=== PATIENT | male | born 1995 | race Caucasian/White ===

== ENCOUNTER 2022-10-02 09:20 | Outpatient (CLI) | payer OTHER, SELFPAY | END 2022-10-02 09:21 | disposition home or self-care (01) | LOC: ANHGOSHLAB 09:25 | PROVIDERS: PCP Emergency Medicine; Visit Provider Emergency Medicine | DX: E03.9 Hypothyroidism, unspecified (principal) | CPT/HCPCS: 36415; 84439; 84443 ==

== ENCOUNTER 2024-02-15 08:08 | Outpatient (CLI) | payer OTHER, SELFPAY ==
[2024-02-15 14:45] LABS: LDL Cholesterol Direct 103 mg/dL
[2024-02-15 14:59] LABS: Hemoglobin A1C 4.3 % (<5.7)
[2024-02-15 16:28] LABS: Alanine Aminotransferase 31 U/L (6-50); Albumin Level 4.5 g/dL (3.5-5.1); Alkaline Phosphatase 71 U/L (38-126); Anion Gap 7 mmol/L (4-12); Aspartate Amino Transferase 54 U/L (17-59); Bilirubin,Total 0.6 mg/dL (0.2-1.3); Blood Urea Nitrogen 21 mg/dL (9-20); Calcium 9.5 mg/dL (8.4-10.2); Carbon Dioxide 26 mmol/L (22-30); Chloride 104 mmol/L (98-107); Cholesterol 155 mg/dL (0-200); Estimated Glomerular Filt Rate > 60; Glucose 75 mg/dL (65-110); HDL Direct 36 mg/dL; Potassium 3.8 mmol/L (3.4-5.0); Sodium 137 mmol/L (137-145); Triglycerides 141 mg/dL (<150)
== END 2024-02-15 08:09 | disposition home or self-care (01) ==
LOC: ANHGOSHLAB 08:10
PROVIDERS: PCP Emergency Medicine; Visit Provider Emergency Medicine
DX: E66.01 Morbid (severe) obesity due to excess calories (principal); E03.9 Hypothyroidism, unspecified
CPT/HCPCS: 36415; 80053; 80061; 83036; 84439; 84443

== ENCOUNTER 2024-02-22 09:53 | Outpatient (CLI) | payer OTHER, SELFPAY ==
[2024-03-01 15:24] VITALS: BMI 43.6
--- NOTE | 2024-03-01 15:24 | WPDHOMESLEEP ---
Sleep Study - Home Unattended Date of Study: 02/22/24 Ordering Provider: Aaron Benoit MD Interpreting Provider: Reyna Bell, DO Home Sleep Study Type: Watch PAT Height: 1.88 m Weight: 154.221 kg Body Mass Index: 43.6 Neck Circumference (inches): 18 [place]: 15 Reason for Sleep Study Unrefreshing sleep Sleep History The patient is a 28-year-old male with hypothyroidism and morbid obesity that had a sleep study ordered by his primary care physician for evaluation of sleep apnea. The patient rarely awakens from sleep short of breath. He rarely awakens at night with heartburn, belching or cough. He frequently snores and is frequently loud enough that others complain. He frequently has trouble sleeping when he has a cold. He rarely wakes up gasping for air throughout the night. He frequently has breathing problems at night observed by himself or others. He frequently sweats excessively at night. He denies having heart palpitations or irregular heartbeats during the night. He occasionally falls asleep during the day but never while driving. He denies sleep paralysis, cataplexy and hypnagogic/ hypnopompic hallucinations. He rarely has trouble at school or work due to sleepiness. He denies feeling afraid of going to sleep. He denies having nightmares. He rarely remembers his dreams. He rarely has thoughts racing through his mind. He denies feeling sad, depressed or anxious. He denies having muscular tension. He denies noticing parts of his body jerk. He denies kicking during the night. He denies having crawling and aching feelings in his legs and denies having leg pain during the night. He frequently grinds his teeth during sleep but never awakens with morning jaw pain. He is rarely bothered by pain during the day and rarely awakened by pain during the night. He occasionally wakes up feeling stiff in the morning. He occasionally wakes up with sore or achy muscles. He frequently wakes up with pain in the neck, spine and other joints. He goes to bed at 8:30 a.m. p.m. on weekdays and at midnight on the weekends. It takes him at least an hour to fall asleep. He wakes up 3-4 times throughout the night to urinate and a can take at least an hour for him to fall back asleep. He wakes up at 5:00 a.m. on weekdays and at 9:00 a.m. on the weekends. He typically gets 5-6 hours of sleep per night. He will stay in bed for 5 minutes after waking up in the morning. He currently lives with his and daughter. He denies consuming any caffeinated beverages within 2 hours of bedtime. He denies engaging in physical exercise before bedtime. He denies reading before falling asleep. He will watch television before falling asleep. He will take naps in the afternoon or the evening and they are refreshing. He consumes a minimum of 500 mg of caffeine per day. He denies tobacco, alcohol and recreational drug use. [facility] Surgical History Surgical History [place] teeth extracted Social History Social History Smoking packs per day: 0 Smoking cigarettes per day: 0.0 Smoking status: Never smoker Second hand tobacco smoke exposure: No Alcohol intake: never Substance use: never Lack of Transportation: No Lack of Food: Never True Current Housing: I Have Housing Concerned About Future Housing: No Difficulty Paying Gas/Electric Bills: No Difficulty Paying for Meds: No Currently Unemployed: No Education: Bachelor's Degree Difficulty w/ Childcare or Family Care: No Medications Home Medications Medication Instructions Recorded Confirmed Type levothyroxine 75 mcg tablet See Rx Instructions .Route 10/09/23 02/10/24 Rx .COMPLEX #90 tabs Sleep Procedure The sleep study was completed using MobileProT a technically adequate device with seven channels: peripheral arterial tone, actig
== END 2024-02-23 07:30 | disposition home or self-care (01) ==
LOC: ANHCSM 09:53
PROVIDERS: PCP Emergency Medicine; Visit Provider Emergency Medicine
DX: G47.33 Obstructive sleep apnea (adult) (pediatric) (principal)
CPT/HCPCS: 95800